=== PATIENT | male | born 1990 | race Caucasian/White ===

== ENCOUNTER 2020-09-17 13:16 | Emergency (ER) | payer OTHER ==
[~2020-09-17] VITALS: Ht 182.9 cm; Wt 68.2 kg
[2020-09-17 13:26] VITALS: BP 138/81; TEMP 98.4
[2020-09-17] MEDS ORDERED: MEDROL 4MG DOSPA4 MG PO (14:24)
[2020-09-17 14:35] VITALS: PULSE 94
== END 2020-09-17 14:37 | disposition home or self-care (01) ==
LOC: COL.ER 13:16
DX: M54.16 Radiculopathy, lumbar region (principal); F17.200 Nicotine dependence, unspecified, uncomplicated
CPT/HCPCS: J1885

== ENCOUNTER → 2020-12-31 | Outpatient (CLI) | payer OTHER ==
[~2020-12-31] MED LIST: MEDROL 4MG DOSPA4 MG PO
== END ==
LOC: MHCPAIN 14:35
DX: M54.5 Low back pain (principal); M53.3 Sacrococcygeal disorders, not elsewhere classified; G89.29 Other chronic pain
CPT/HCPCS: G0463